=== PATIENT | male | born 1950 | race Caucasian/White ===

== ENCOUNTER → 2016-11-11 | Outpatient (CLI) | payer OTHER, MEDICARE ==
--- NOTE | 2016-11-11 09:34 | DX ---
Lumbar Spine, Four Views Indication: Pain. Evaluate for instability. Technique: Upright AP and lateral views in the neutral, flexed, and extended position. Findings: Five nonbearing lumbar vertebral bodies have minimal dextrocurvature apex at L2. Lateral pr ojection reveals 10 mm of anterolisthesis of L5 on S1 and bilateral pars interarticularis defect. The 10 mm of anterolisthesis is unchanged with flexion-extension maneuvers. No instability is elicited a t any level. Mild to moderate degenerative disk disease is present at T12-L1, L1-L2, L2-L3, and L3-L4 . The L4-L5 disk space is well preserved. Severe degenerative disk disease is present at L5-S1. Moder ate productive facet arthropathy is present at L3-L4 through L5-S1. Impression: 1. Grade 1 spondylolisthesis of L5 on S1 due to bilateral L5 pars defect. No instability with flexion -extension maneuvers. 2. Severe degenerative disk disease at L5-S1. 3. Mild to moderate multilevel degenerative disk disease extending from T12-L1 to L3-L4.
== END ==
LOC: FIMAGING 07:47
PROVIDERS: ATTEND Neurological Surgery
DX: M43.16 Spondylolisthesis, lumbar region (principal); M51.26 Other intervertebral disc displacement, lumbar region; M48.06 Spinal stenosis, lumbar region; M54.16 Radiculopathy, lumbar region

== ENCOUNTER 2016-11-21 05:24 | Observation (INO) | payer OTHER, MEDICARE ==
[2016-11-21] MEDS ORDERED: LIDOCAINE 1% 5 ML SDV ONE (05:58)
[2016-11-21 06:21] LABS: % IMMATURE GRANULYOCYTES 0.2 % (0.0-1.1); ABSOLUTE IMMATURE GRANULOCYTES 0.01 10^3/uL (0.00-0.10); ADD DIFF? NO; ADD MORPH? NO; ADD SCAN? NO; ATYPICAL LYMPHOCYTE FLAG 0 (0-99); FRAGMENT RBC FLAG 0 (0-99); HEMATOCRIT 51.3 % (40.0-51.0); HEMOGLOBIN 18.5 g/dL (13.7-17.5); LEFT SHIFT FLG 0 (0-99); LIPEMIA HEMOLYSIS FLAG 90 (0-99); MEAN CELL HEMOGLOBIN 33.1 pg (27.9-34.1); MEAN CELL HEMOGLOBIN CONCENTR. 36.1 g/dL (32.4-36.7); MEAN CELL VOLUME 91.8 fL (81.5-99.8); MEAN PLATELET VOLUME 9.4 fL (8.7-11.7); PLATELET CLUMPS FLAG 50 (0-99); PLATELET COUNT 148 10^3/uL (150-400); RED BLOOD CELL COUNT 5.59 10^6/uL (4.40-6.38); RED CELL DISTRIBUTION WIDTH 12.5 % (11.5-15.2)
[2016-11-21] MEDS ORDERED: LIDOCAINE 1% 5 ML SDV ID PRN (06:27)
[2016-11-21] MEDS ORDERED: LR 1,000 ML IV ONE (06:27)
[2016-11-21] MEDS ORDERED: ceFAZolin 2 GM/DEXTROSE 100 ML IV ONE (07:00)
[2016-11-21] MEDS ORDERED: BUPIVACAINE/EPI 0.25% 30 ML SDV ONE (07:05)
[2016-11-21] MEDS ORDERED: BACITRACIN 50,000 UNITS/10 ML SYR IRR ONE (07:05)
[2016-11-21] MEDS ORDERED: DEPO METHYLPREDNISOLONE 40 MG/ML SDV ONE (07:05)
[2016-11-21] MEDS ORDERED: fentaNYL 100 MCG/2 ML INJ ONE ×2 (07:23→09:20)
[2016-11-21] MEDS ORDERED: PROPOFOL/EMULSION 500 MG/50 ML BOTTLE IV ONE ×2 (07:24→07:52)
[2016-11-21] MEDS ORDERED: THROMBIN (RECOMBINANT) 5,000 UNIT VIAL TP ONE (07:59)
[2016-11-21] MEDS ORDERED: DIAZEPAM 5 MG TAB PO PRN (10:03)
[2016-11-21] MEDS ORDERED: diphenhydrAMINE 25 MG CAP PO PRN (10:03)
[2016-11-21] MEDS ORDERED: DIAZEPAM 10 MG/2 ML SYR IVP PRN (10:03)
[2016-11-21] MEDS ORDERED: MAGNESIUM HYDROXIDE 30 ML UDCUP PO PRN (10:03)
[2016-11-21] MEDS ORDERED: POLYETHYLENE GLYCOL 3350 17 GM PKT PO PRN (10:03)
[2016-11-21] MEDS ORDERED: ONDANSETRON DISINTEGRATING 4 MG TAB PO PRN (10:03)
[2016-11-21] MEDS ORDERED: ONDANSETRON 4 MG/2 ML VIAL IVP PRN (10:03)
[2016-11-21] MEDS ORDERED: LACTULOSE 20 GM/30 ML UDCUP PO PRN (10:03)
[2016-11-21] MEDS ORDERED: BISACODYL 10 MG SUPP PR PRN (10:03)
[2016-11-21] MEDS ORDERED: METHOCARBAMOL 750 MG TAB PO PRN (10:03)
[2016-11-21] MEDS ORDERED: HYDROCODONE/APAP 10/325 TAB PO PRN (10:03)
[2016-11-21] MEDS ORDERED: ACETAMINOPHEN 325 MG TAB PO PRN (10:03)
--- NOTE | 2016-11-21 10:11 | POSTOPPROG ---
Post Op Note Date of Operation: 11/21/16 Surgeon: Kayden Beal [employer]ellite Television Installer: My Aldridge PA-C Anesthesia: GET(General Endotracheal) Pre-op Diagnosis: herniated nucleus pulposis l3/4 Post-op Diagnosis: same Procedure: Redo L3/4 microdiscectomy Inf/Abcess present in the surg proc area at time of surgery?: No Depth: Organ Space EBL: 75 SOAP Progress Note Assessment/Plan: Assessment: Plan: S: Patient waking up in PACU with "sore" back. O: AFVSS, NAD CN II-XII grossly intact following commands BUE/BLE 5/5= Sensation intact to lt touch incision c/d/i- dressed A/P; 66 yo male s/p L3/4 microdiscectomy -Admit for 4 hours to floor (medicare guidelines) -Discharge home in 4 hours once able to tolerate po, amubulate, void, pain under control -Pain meds ordered -Advance diet as tolerated -Activity as tolerated 11/21/16 10:09 Objective: Laboratory Results 11/21/16 06:15
[2016-11-21] MEDS ORDERED: NS W/ 20 KCl/L 1,000 ML IV SCH (10:15)
--- NOTE | 2016-11-21 10:29 | DX ---
Fluoroscopy Provided for Lumbar Spine Surgery, 8:23 a.m. Indication: Pain. Fluoroscopy Time: 4.4 seconds. Dose: 2.04 mGy. Technique: Single crosstable lateral view of the lumbar spine. Findings: Radiopaque localizers reside posterior to the L3-L4 disk space and L3 vertebral body. Impression: Fluoroscopy provided for intraoperative localization.
--- NOTE | 2016-11-21 10:41 | GOP ---
[f rep st] OPERATIVE REPORT DATE OF OPERATION: 11/21/2016 SURGEON: Elizabeth Beal MD RESPIRATORY EQUIPMENT ASSISTANT: My Aldridge PA-C. PREOPERATIVE DIAGNOSIS: 1. Recurrent disk herniation, right L3-4. 2. Spondylolisthesis with spondylolysis, L5-S1. 3. Lumbar degenerative disk disease. 4. Right lumbosacral radiculopathy. POSTOPERATIVE DIAGNOSIS: 1. Recurrent disk herniation, right L3-4. 2. Spondylolisthesis with spondylolysis, L5-S1. 3. Lumbar degenerative disk disease. 4. Right lumbosacral radiculopathy. PROCEDURE PERFORMED: Right L3-4 reexploration and microdiskectomy (31164), microscope. FINDINGS: ESTIMATED BLOOD LOSS: 25 cc. INDICATIONS: Mr. Carrizales is a 66-year-old, with a prior history of a right L3-4 hemilaminotomy and f or microdiskectomy, and he developed recurrent right leg symptoms, and MRI demonstrated a large right disk herniation at L3-4. He also had spondylolysis at L5-S1 with spondylolisthesis that was about a grade 2, but he did not appear to have clear-cut L5 radicular signs and symptoms, and for these reas ons, I suggested simply doing a simple microdiskectomy on the right at L3-4. The risk of continued s ymptoms, recurrent disk herniation, nerve injury, spinal fluid leak was discussed. He understood a m ore substantial reconstructive surgery of the spine may become necessary, and he accepted this possib ility but he did want to proceed with a small surgery. DESCRIPTION OF PROCEDURE: Patient was taken to the operating room, placed in supine position. Gener al anesthesia was begun. He was flipped prone on the Vish frame. Care was taken to pad all points of contact. His back was sterilely prepped and draped in the usual fashion. He had a prior 5 cm in cision on the lumbar spine, and we used 3 cm of this 5 cm incision for our approach. The subcutaneou s tissue was dissected using Bovie cautery down to the fascia, and a subperiosteal dissection was mad e down the lamina of L3. A self-retaining retractor was placed. We drilled right L3 laminotomy. We preserved the facet joint. Under the microscope, we opened the ligamentum flavum and indeed at the inferior aspect of the lamina, there was adherence of the thecal sac to the prior scar. We worked ro strally and then worked our way down along the lateral border of the thecal sac, decompressing the la teral thecal sac and we identified the traversing L4 nerve root, and we swept it medially. Underneat h the nerve root was a large subannular disk fragment that was pushing up into the nerve quite obsummer trinh, and we simply pushed this disk out into our field of view with a ball-tip probe, and then remove d it. We entered the disk itself through the defect created, and the disk itself was very degenerati ve. There was very little disk left inside the disk space, just the cartilaginous endplates. We the n irrigated with large amounts of antibiotic saline, placed some Depo-Medrol over the right L4 nerve root, and then closed the incision in multiple layers using Vicryl sutures. Steri-Strips were applie d. The patient was reversed from anesthesia, extubated, and transferred to recovery room in stable c ondition. There were no complications. COMPLICATIONS: None. /[id number]/MODL
[2016-11-21] MEDS: SENNOSIDES/DOCUSATE SODIUM TAB PO SCH (19:47)
[2016-11-21 23:53] VITALS: O2SAT 90
[2016-11-22 05:07] VITALS: RESP 16
[2016-11-22 07:24] VITALS: BP 145/87; PULSE 104; TEMP 98.2
[2016-11-22] MEDS: SENNOSIDES/DOCUSATE SODIUM TAB PO SCH (07:52)
--- NOTE | 2016-11-22 08:37 | NEUSURGPN ---
Assessment/Plan: 66 yo male s/p L3/4 microdiscectomy -Optimize pain management, patient doing well with Tylenol -Activity as tolerated -Discharge home today Subjective: Mild tension type headache. Denies any back pain, new leg pain, numbness, tingling or weakness. Objective: NAD A&Ox3 MAEx4 5/5 and equal in BUE and BLE. Incisional dressing c/d/i - Physician Discussed Patient with : [facility] Neurosurgery Physical Exam - Vitals, I&O, Labs I and O 11/21/16 11/22/16 11/23/16 05:59 05:59 05:59 Intake Total 2950 Output Total 1700 300 Balance 1250 -300 Weight 77.111 kg Intake: Oral (ml) 550 IV Intake (ml) 1300 IV Infused (ml) 1100 NS W/ 20 KCl/L 1,000 ml @ 1100 75 mls/hr IV CONT ZACHARY Rx #:[id number] Output: Urine (ml) 850 300 Urinal 850 300 Estimated Blood Loss (ml) 50 Emesis (ml) 800 Other: Intake Quantity Yes Sufficient Number of Voids Urinal 1 1 Number of Stools Urinal 4 Number of Emesis 1 Occurrences Vital Signs Temp Pulse Resp BP Pulse Ox 36.8 C 104 H 16 145/87 H 90 L 11/22/16 07:21 11/22/16 07:21 11/22/16 07:21 11/22/16 07:21 11/22/16 07:21 Laboratory Results 11/21/16 06:15 ICD10 Worksheet Patient Problems: Problems Problem Status Diagnosed Herniated nucleus pulposus, lumbar Acute - ICD10 Problem Qualifiers (1) Herniated nucleus pulposus, lumbar
== END 2016-11-22 11:42 | disposition home or self-care (01) ==
LOC: F3N 05:24
PROVIDERS: ADMIT Neurological Surgery; ATTEND Neurological Surgery
PROC: 8E0WXBZ Computer Assisted Procedure of Trunk Region (ICD-10-PCS; principal; 2016-11-21 07:30)
PROC: 00NY0ZZ Release Lumbar Spinal Cord, Open Approach (ICD-10-PCS; principal; 2016-11-21 07:30)
DX: M51.26 Other intervertebral disc displacement, lumbar region (principal); M43.16 Spondylolisthesis, lumbar region
CPT/HCPCS: 63042; 76001; J0690; J1020; J2405; J2704; J3010

== ENCOUNTER 2017-07-07 08:04 | Day surgery (SDC) | payer OTHER, MEDICARE ==
[2017-07-07] MEDS ORDERED: ceFAZolin 2 GM/DEXTROSE 100 ML IV ONE (08:20)
[2017-07-07] MEDS ORDERED: LR 1,000 ML IV ONE (08:25)
[2017-07-07] MEDS ORDERED: LIDOCAINE 1% 2 ML INJ ID PRN (08:25)
[2017-07-07] MEDS ORDERED: BUPIVACAINE 0.5% 30 ML SDV ONE ×2 (08:46→10:49)
--- NOTE | 2017-07-07 10:32 | PDHPUP ---
History & Physical Update H&P update statement: This history and physical update is based on an assessment of the patient which was completed after admission or registration (within 24 hours), but prior to the surgery/procedure. H&P update: H&P reviewed & patient examined, no change in patient's condition since H&P completed
[2017-07-07] MEDS ORDERED: SCOPOLAMINE HYDROBROMIDE 1 MG/3 DAYS PATCH TD ONE (10:41)
--- NOTE | 2017-07-07 10:43 | PDANEPAE ---
ANE History of Present Illness l inguinal hernia ANE Past Medical History - Cardiovascular History Hx Hypertension: No Hx Arrhythmias: No Hx Chest Pain: No Hx Coronary Artery / Peripheral Vascular Disease: No Hx CHF / Valvular Disease: No Hx Palpitations: No - Pulmonary History Hx COPD: No Hx Asthma/Reactive Airway Disease: No Hx Recent Upper Respiratory Infection: No Hx Oxygen in Use at Home: No Hx Sleep Apnea: No Sleep Apnea Screening Result - Last Documented: Negative - Neurologic History Hx Cerebrovascular Accident: No Hx Seizures: No Hx Dementia: No Neurologic History Comment: hx of previous lami and foraminotomy. tingling/ numbness along right arriaza bone - Endocrine History Hx Diabetes: No - Renal History Hx Renal Disorders: No - Liver History Hx Hepatic Disorders: No - Neurological & Psychiatric Hx Hx Neurological and Psychiatric Disorders: No - Cancer History Hx Cancer: No - Congenital Disorder History Hx Congenital Disorders: No - GI History Hx Gastrointestinal Disorders: Yes Gastrointestinal History Comment: occ reflux - Other Health History Other Health History: ARTHRITIS. bruises easily - Chronic Pain History Chronic Pain: Yes (LT ING AREA) - Surgical History Prior Surgeries: RE-EXC LUMBAR MICRODISCECTOMY 11/2016. bilateral bicep tendon repair. laminectomy l5. cervical foraminotomy. bilateral knee scopes. 2 AC shoulder seperations. poplitial cyst on right calf surgery ANE Review of Systems Review of Systems: - Exercise capacity METS (RN): 4 METS ANE Patient History - Allergies Allergies/Adverse Reactions: No Known Allergies Allergy (Unverified 10/31/16 11:16) - Home Medications Home Medications: Cholecalciferol Vit D3 [Vitamin D3 (*)] 1,000 units PO DAILY 10/31/16 [Last Taken 07/05/17] Glucosamine Sulfate [Glucosamine Sulfate 500 MG (*)] 500 mg PO DAILY 10/31/16 [ Last Taken 07/05/17] ASPIRIN DAILY 07/04/17 [Last Taken 07/04/17] - NPO status NPO Since - Liquids (Date): 07/06/17 NPO Since - Liquids (Time): 23:15 NPO Since - Solids (Date): 07/06/17 NPO Since - Solids (Time): 06:30 - Smoking Hx Smoking Status: Never smoked - Family Anes Hx Family Hx Anesthesia Complications: none ANE Labs/Vital Signs - Vital Signs Blood Pressure: 152/92 Heart Rate: 66 Respiratory Rate: 16 O2 Sat (%): 96 Height: 180.34 cm Weight: 75.75 kg ANE Physical Exam - Airway Neck exam: FROM Mallampati Score: Class 1 Mouth exam: normal dental/mouth exam - Pulmonary Pulmonary: no respiratory distress - Cardiovascular Cardiovascular: regular rate and rhythym - ASA Status ASA Status: I ANE Anesthesia Plan Anesthesia Plan: general endotracheal anesthesia
[2017-07-07] MEDS ORDERED: fentaNYL 100 MCG/2 ML INJ ONE ×2 (10:46)
[2017-07-07] MEDS ORDERED: PROPOFOL 200 MG/20 ML VIAL ONE (10:46)
[2017-07-07] MEDS ORDERED: DEXAMETHASONE 4 MG/ML VIAL ONE (10:46)
[2017-07-07] MEDS ORDERED: ROCURONIUM 100 MG/10 ML VIAL ONE (10:46)
[2017-07-07] MEDS ORDERED: ONDANSETRON 4 MG/2 ML VIAL IVP PRN (11:25)
[2017-07-07] MEDS ORDERED: PROMETHAZINE HCL 25 MG/ML INJ IVP PRN (11:25)
[2017-07-07] MEDS ORDERED: NALOXONE HCL 0.4 MG/ML INJ IVP PRN (11:25)
[2017-07-07] MEDS ORDERED: HYDROmorphONE/DILAUDID 1 MG/ML INJ IVP PRN (11:25)
[2017-07-07] MEDS ORDERED: fentaNYL 100 MCG/2 ML INJ IVP PRN (11:25)
--- NOTE | 2017-07-07 13:14 | POSTANESTH ---
Post Anesthetic Evaluation Cardiovascular Status: Normal, Stable Level of Consciousness/Mental Status: Can Participate in Eval Pain Control: Adequate, Prn Tx Ordered Nausea/Vomiting Control: Adequate, Prn Tx Ordered Complications Possibly Related to Anesthesia: None Noted
[2017-07-07] MEDS ORDERED: ONDANSETRON 4 MG/2 ML VIAL ONE (14:10)
[2017-07-07 14:38] VITALS: PULSE 80
[2017-07-07] MEDS ORDERED: ACETAMINOPHEN 325 MG TAB PO ONE (14:45)
--- NOTE | 2017-07-07 15:41 | POSTOPPROG ---
Post Op Note Date of Operation: 07/07/17 Surgeon: Zacarias Stauffer Alum Mixer: Vince, WALT Anesthesiologist: Evy Anesthesia: GET(General Endotracheal) Pre-op Diagnosis: Left inguinal hernia, inguinal mass Post-op Diagnosis: same Procedure: Robotic LIH c mesh, L groin mass excision Findings: small direct defect, weak floor. Superficial inguinal mass removed Inf/Abcess present in the surg proc area at time of surgery?: No EBL: Minimal Specimen(s): L inguinal lymph node
[2017-07-07 15:43] VITALS: BP 131/78; RESP 20; TEMP 97.3; O2SAT 94
--- NOTE | 2017-07-08 09:36 | GOP ---
[f rep st] OPERATIVE REPORT DATE OF OPERATION: 07/07/2017 SURGEON: Zacarias Stauffer MD IT RISK ANALYST: WALT Fish. ANESTHESIA: General endotracheal. ANESTHESIOLOGIST: Guilherme Ratliff MD. PREOPERATIVE DIAGNOSIS: Left inguinal hernia. POSTOPERATIVE DIAGNOSIS: Left inguinal hernia with enlarged superficial inguinal lymph node. PROCEDURE PERFORMED: Robotic-assisted laparoscopic transabdominal preperitoneal left inguinal hernia repair with mesh, and removal of left inguinal lymph node. FINDINGS: Small direct weakening of the inguinal floor successfully repaired with large 3D light mesh and large pre fascial left inguinal lymph node successfully removed via separate incision. SPECIMENS: Superficial left inguinal lymph nodes. ESTIMATED BLOOD LOSS: 5 cc. DESCRIPTION OF PROCEDURE: The patient was greeted in the preoperative suite. Once again, risks, benefits, and alternatives were discussed. Consent was signed. He was then brought back into the operative suite, placed on the OR table in a supine position. After all anesthesia machines, including SCDs were on and functioning, [facility] time-out was performed. After successful induction of general anesthesia, the patient's abdomen was prepped and draped in typical sterile fashion. I entered the abdomen using the Veress needle just superior to the umbilicus. I achieved pneumoperitoneum to 15 mmHg which was well tolerated by the patient. Through this, I placed a 5 mm port using the Visiport technique. I then placed 2 additional 8 mm ports in the left upper and right upper quadrants under direct visualization and upsized my midline port to an 8 mm as well. I successfully docked the robot. Once docked , I entered the preperitoneal space on the left side and created a pocket in the preperitoneal area. The floor appeared weakened with a small direct defect. No indirect femoral or obturator hernias were identified. After skeletonizing the cord structures, I then brought my piece of mesh into the operative field. I attached it to Mynor ligament using an interrupted 3-0 Vicryl suture and then placed 1 suture on either side of the inferior epigastric vessels. After assuring adequate placement and sufficient overlap of all defects, I then closed the preperitoneal space by closing the peritoneum with a running 3-0 V-lock suture, noting excellent reapproximation. I then desufflated my pneumoperitoneum. I closed the skin using running 4-0 Monocryl. I then turned my attention toward the patient's left inguinal area where he had an enlarged group of lymph nodes. Using an approximate 2 cm incision, I carried this down through the skin and encountered the nodes. He had a superficial enlarged what appeared to be group of lymph nodes which I completely excised. I did have to tie off some sizable feeding vessels which was done with 3-0 Vicryl, noting excellent hemostasis. After removal, the wound was closed in layers. First with 3-0 Vicryl, then a running 4-0 Monocryl. Dermabond was placed on all incision sites. The patient was then extubated in the operative suite and taken to the PACU in satisfactory condition. DRAINS: None. COUNTS: All counts were reported as correct x2. /[id number]/MODL MTDD
[2017-07-09 13:57] LABS: FINAL DIAGNOSIS See Comments; MICROSCOPIC DESCRIPTION See Comments
== END 2017-07-07 15:45 | disposition home or self-care (01) ==
LOC: FSGY 08:04
PROVIDERS: ATTEND Surgery
PROC: 8E0W4CZ Robotic Assisted Procedure of Trunk Region, Percutaneous Endoscopic Approach (ICD-10-PCS; principal; 2017-07-07 10:45)
PROC: 0YU64JZ Supplement Left Inguinal Region with Synthetic Substitute, Percutaneous Endoscopic Approach (ICD-10-PCS; principal; 2017-07-07 10:45)
DX: K40.90 Unilateral inguinal hernia, without obstruction or gangrene, not specified as recurrent (principal)
CPT/HCPCS: 88184-90; 88185-91; C1781; J0690; J1100; J2405; J2704; J3010